=== PATIENT | female | born 1975 | race Caucasian/White ===

== ENCOUNTER → 2016-04-04 | Outpatient (CLI) | payer OTHER ==
[~2016-04-04] MED LIST: CIPR-225 PO; DOCU100C37 PO; HYDR-3816 PO; IBUP-1773 PO; SIME80TA16 PO
[2016-04-04 10:33] LABS: BASOPHILS # (AUTO) 0.1 10^3/uL (0.0-0.1); BASOPHILS % (AUTO) 1 % (0-10); EOSINOPHILS # (AUTO) 0.4 10^3/uL (0.0-0.3); EOSINOPHILS % (AUTO) 4 % (0-10); LYMPHOCYTES # (AUTO) 2.3 X 10^3 (1.0-4.0); LYMPHOCYTES % (AUTO) 24 % (12-44); MEAN CORPUSCULAR HEMOGLOBIN 21 PG (25-34); MEAN CORPUSCULAR HGB CONC 28 G/DL (32-36); MEAN CORPUSCULAR VOLUME 74 FL (80-99); MEAN PLATELET VOLUME 10.4 FL (7.4-10.4); MONOCYTES # (AUTO) 0.8 X 10^3 (0.0-1.0); MONOCYTES % (AUTO) 8 % (0-12); NEUTROPHILS # (AUTO) 6.1 X 10^3 (1.8-7.8); NEUTROPHILS % (AUTO) 64 % (42-75); PLATELET COUNT 395 10^3/uL (130-400); RED BLOOD COUNT 4.28 10^6/uL (4.35-5.85); RED CELL DISTRIBUTION WIDTH 18.9 % (10.0-14.5); RETICULOCYTE % 1.22 % (0.50-2.40); WHITE BLOOD COUNT 9.6 10^3/uL (4.3-11.0)
--- NOTE | 2016-04-04 14:14 | Diagnostic Imaging Report ---
INDICATION: Menorrhagia. Endovaginal pelvic sonogram. FINDINGS: Uterus measures 10.9 x 7.1 x 6.1 cm. The myometrium appears normal. The endometrium is thickened measuring 13 mm. There are bilateral ovarian cysts. There is a small hemorrhagic cyst on the left ovary. There is no free fluid. IMPRESSION: Thickened endometrium that could be related to menstrual phase but endometrial hyperplasia cannot be excluded. Dictated by: Dictated on workstation # [id number]
[2016-04-04 14:40] LABS: %SAT TOTAL IRON BINDING CAPIC 4 % (15-50); TIBC 450 ug/dL (280-380)
[2016-04-04 15:28] LABS: UIBC 432 ug/dL (55-450)
== END ==
LOC: RAD 10:06
PROVIDERS: ATTEND Nurse Practitioner
DX: N92.0 Excessive and frequent menstruation with regular cycle (principal); D50.0 Iron deficiency anemia secondary to blood loss (chronic)
CPT/HCPCS: 36415; 76830; 76856; 83540; 83550; 85025; 85045

== ENCOUNTER 2016-04-22 08:26 | Outpatient (RCR) | payer OTHER ==
[2016-04-04 11:43] LABS: ALANINE AMINOTRANSFERASE 11 U/L (0-55); ALBUMIN 4.4 G/DL (3.2-4.5); ANION GAP 9 MMOL/L (5-14); ASPARTATE AMINO TRANSFERASE 19 U/L (5-34); BILIRUBIN,TOTAL 0.6 MG/DL (0.1-1.0); BLOOD UREA NITROGEN 10 MG/DL (7-18); BUN/CREATININE RATIO 14; CALCIUM 9.2 MG/DL (8.5-10.1); CARBON DIOXIDE 24 MMOL/L (21-32); CHLORIDE 107 MMOL/L (98-107); CREATININE SERUM 0.72 MG/DL (0.60-1.30); GFR ESTIMATED > 60; GLUCOSE 73 MG/DL (70-105); POTASSIUM 4.4 MMOL/L (3.6-5.0); SODIUM 140 MMOL/L (135-145)
[~2016-04-22 08:26] MED LIST changes: -CIPR-225 PO; -DOCU100C37 PO; +FERRIC CARBOXYMALTOSE (CANCER) 750 MG in NS (IVPB) CANCER CENTER 250 ML IV SCH; -HYDR-3816 PO; -IBUP-1773 PO; -SIME80TA16 PO
[2016-05-30] MEDS ORDERED: CIPR-225 PO (06:53)
[2016-05-30] MEDS ORDERED: IBUP-1773 PO (09:16)
[2016-05-30] MEDS ORDERED: HYDR-3816 PO (09:16)
[2016-05-30] MEDS ORDERED: SIME80TA16 PO (09:16)
[2016-05-30] MEDS ORDERED: DOCU100C37 PO (09:16)
== END 2016-07-03 | disposition home or self-care (01) ==
LOC: ONC 08:26
PROVIDERS: ATTEND Internal Medicine Hematology & Oncology
DX: D50.0 Iron deficiency anemia secondary to blood loss (chronic) (principal); N92.0 Excessive and frequent menstruation with regular cycle; F17.210 Nicotine dependence, cigarettes, uncomplicated
CPT/HCPCS: 80053; 82728; 96365; 99214

== ENCOUNTER 2016-05-23 08:45 | Outpatient (CLI) | payer OTHER ==
[~2016-05-23] VITALS: Ht 172.7 cm; Wt 65.8 kg
--- OUTSIDE RECORDS SUMMARY | 2016-05-23 08:49 | XMS REPORT | Continuity of Care Document ---
Author Author [facility] Organization [facility] Address Unknown Phone Unavailable Allergies Active Description Code Type Severity Reaction Onset Reported/Identified Relationship to Patient Clinical Status Yes No Known Drug Allergies [id number] Drug Allergy Unknown N/ A 04/15/2016 Medications Problems Date Dx Coded Attending Type Code Diagnosis Diagnosed By 07/20/2015 CHANDRIKA PETERS SENIOR POWER PLANT OPERATOR Ot R00.2 PALPITATIONS 07/21/2015 CHANDRIKA PETERS SENIOR POWER PLANT OPERATOR Ot R00.2 PALPITATIONS 08/15/2015 CHANDRIKA PETERS SENIOR POWER PLANT OPERATOR Ot R00.2 PALPITATIONS 12/07/2015 KATI MERA SNAKER DRIVING HORSES Ot R13.10 DYSPHAGIA, UNSPECIFIED 12/07/2015 SAMARIA KATI L SNAKER DRIVING HORSES Ot S06.0X9A CONCUSSION W LOSS OF CONSCIOUSNESS OF UN 12/07/2015 MERAERWINI L SNAKER DRIVING HORSES Ot X58.XXXA EXPOSURE TO OTHER SPECIFIED FACTORS, INI 12/07/2015 SAMARIA KATI L SNAK[employer] DRIVING HORSES Ot Y99.8 OTHER EXTERNAL CAUSE STATUS 12/12/2015 SAMARIA KATI L SNAKER DRIVING HORSES Ot R13.10 DYSPHAGIA, UNSPECIFIED 12/12/2015 MERAERWINI L SNAKER DRIVING HORSES Ot S06.0X9A CONCUSSION W LOSS OF CONSCIOUSNESS OF UN 12/12/2015 SAMARIA KATI L SNAKER DRIVING HORSES Ot X58.XXXA EXPOSURE TO OTHER SPECIFIED FACTORS, INI 12/12/2015 SAMARIA KATI L SNAK[employer] DRIVING HORSES Ot Y99.8 OTHER EXTERNAL CAUSE STATUS 12/21/2015 SAMARIA KATI L SNAKER DRIVING HORSES Ot R13.10 DYSPHAGIA, UNSPECIFIED 12/21/2015 MERA, KATI L SNAKER DRIVING HORSES Ot S06.0X9A CONCUSSION W LOSS OF CONSCIOUSNESS OF UN 12/21/2015 SAMARIA KATI L SNAKER DRIVING HORSES Ot X58.XXXA EXPOSURE TO OTHER SPECIFIED FACTORS, INI 12/21/2015 KATI MERA SNAK[employer]IV[employer] HORSES Ot Y99.8 OTHER EXTERNAL CAUSE STATUS 04/04/2016 CHANDRIKA PETERS SENIOR POWER PLANT OPERATOR Ot R00.2 PALPITATIONS 04/04/2016 KATI MERA Shweta SNA[employer] HORSES Ot R13.10 DYSPHAGIA, UNSPECIFIED 04/04/2016 KATI MERA Shweta SNAK[employer] DRIVING HORSES Ot S06.0X9A CONCUSSION W LOSS OF CONSCIOUSNESS OF UN 04/04/2016 KATI MERA Shweta SNAK[employer] DRIVING HORSES Ot X58.XXXA EXPOSURE TO OTHER SPECIFIED FACTORS, INI 04/04/2016 KATI MERA Shweta SNA[employer]ES Ot Y99.8 OTHER EXTERNAL CAUSE STATUS 04/04/2016 PETERS, CHANDRIKA Mio SENIOR POWER PLANT OPERATOR Ot D50.0 IRON DEFICIENCY ANEMIA SECONDARY TO BLOO 04/04/2016 PETERS, CHANDRIKA J SENIOR POWER PLANT OPERATOR Ot N92.0 EXCESSIVE AND FREQUENT MENSTRUATION WITH 04/10/2016 PETERSCHANDRIKA SENIOR POWER PLANT OPERATOR Ot D50.0 IRON DEFICIENCY ANEMIA SECONDARY TO BLOO 04/10/2016 PETERS, CHANDRIKA Lieberman SENIOR POWER PLANT OPERATOR Ot N92.0 EXCESSIVE AND FREQUENT MENSTRUATION WITH 05/10/2016 PETERS CAHNDRIKA SMARTP Ot D50.0 IRON DEFICIENCY ANEMIA SECONDARY TO BLOO 05/10/2016 PETERS, CHANDRIKA J SENIOR POWER PLANT OPERATOR Ot N92.0 EXCESSIVE AND FREQUENT MENSTRUATION WITH Procedures Results Encounters ACCT No. Visit Date/Time Discharge Status Pt. Type Provider Facility Loc./Unit Complaint [id number] 04/22/2016 08:26:00 ACT Outpatient MARCELLE LUJAN [facility] ONC [id number] 04/04/2016 10:06:00 ACT Outpatient CHANDRIKA PETERS [facility] RAD HEAVY AND PAINFUL PERIODS,ANEMIA [id number] 12/05/2015 11:29:00 ACT Outpatient [place]ARIA [place] APRN [facility] RAD CONCUSSION DUE TO TRAUMA,DIFFICULTY SWALLING [id number] 07/19/2015 07:29:00 ACT Outpatient CHANDRIKA PETERS [facility] CARD PALPITATIONS
[2016-05-23 08:52] VITALS: BP 126/76
[2016-05-23 09:18] LABS: BASOPHILS % (AUTO) 1 % (0-10); EOSINOPHILS # (AUTO) 0.4 10^3/uL (0.0-0.3); EOSINOPHILS % (AUTO) 5 % (0-10); LYMPHOCYTES # (AUTO) 1.8 X 10^3 (1.0-4.0); LYMPHOCYTES % (AUTO) 25 % (12-44); MEAN CORPUSCULAR HEMOGLOBIN 28 PG (25-34); MEAN CORPUSCULAR HGB CONC 31 G/DL (32-36); MEAN CORPUSCULAR VOLUME 89 FL (80-99); MEAN PLATELET VOLUME 10.1 FL (7.4-10.4); MONOCYTES # (AUTO) 0.4 X 10^3 (0.0-1.0); MONOCYTES % (AUTO) 6 % (0-12); NEUTROPHILS # (AUTO) 4.6 X 10^3 (1.8-7.8); NEUTROPHILS % (AUTO) 63 % (42-75); PLATELET COUNT 296 10^3/uL (130-400); RED BLOOD COUNT 4.85 10^6/uL (4.35-5.85); WHITE BLOOD COUNT 7.3 10^3/uL (4.3-11.0)
== END 2016-05-23 09:10 | disposition home or self-care (01) ==
LOC: PREOP 08:45
PROVIDERS: ATTEND Obstetrics & Gynecology
DX: Z01.812 Encounter for preprocedural laboratory examination (principal); Z11.2 Encounter for screening for other bacterial diseases; N93.9 Abnormal uterine and vaginal bleeding, unspecified; D64.9 Anemia, unspecified
CPT/HCPCS: 36415; 85025; 86850; 86900; 86901; 87081

== ENCOUNTER 2016-05-30 06:11 | Day surgery (SDC) | payer OTHER ==
[~2016-05-30] VITALS: Ht 172.7 cm; Wt 65.8 kg
[2016-05-30] VITALS (10 sets, daily range): BP systolic 91–114; BP diastolic 44–68
--- OUTSIDE RECORDS SUMMARY | 2016-05-30 06:14 | XMS REPORT | Continuity of Care Document ---
Author Author [facility] Organization [facility] Address Unknown Phone Unavailable Care Team Providers Care Excel Specialist Name Role Phone MELISA YBARRA MD PCP Insurance Providers Payer Name Policy Number Subscriber Name Relationship [id number] Nabila Higginbotham 19 Self / Same As Patient Advance Directives Directive Response Recorded Date/Time Advance Directives No 05/23/16 8:53am Resuscitation Status Full Code 05/23/16 8:53am Problems No problem information available. Medications No known medications. Social History Social History Problem Response Recorded Date/Time Alcohol Use Occasionally Uses 05/23/2016 8:53am Recreational Drug Use No 05/23/2016 8:53am Recent Foreign Travel No 05/23/2016 8:55am Recent Infectious Disease Exposure No 05/23/2016 8:55am Smoking Status Current Everyday Smoker 05/23/2016 8:53am Type Used Cigarettes 05/23/2016 8:53am Recent Hopitalizations No 05/23/2016 8:53am Query Response Start Date Stop Date Smoking Status Current Everyday Smoker Hospital Discharge Instructions No hospital discharge instructions. Plan of Care Discharge Date 05/23/16 9:10am Prescriptions See Medication Section Functional Status No functional status results. Allergies, Adverse Reactions, Alerts No known allergies. Immunizations No immunization records. Vital Signs Acute Vital Signs Vital Response Date/Time Pulse Rate (adult) 65 bpm (60 - 90) 05/23/2016 8:52am O2 Sat by Pulse Oximetry 99 % (88 - 100) 05/23/2016 8:52am Blood Pressure 126/76 mm Hg 05/23/2016 8:52am Blood Pressure Mean 93 mm Hg 05/23/2016 8:52am Pain Numeric Pain Scale 0-No Pain 05/23/2016 8:52am Height (Feet) 5 feet 05/23/2016 8:52am Height (Inches) 8.00 inches 05/23/2016 8:52am Height (Calculated Centimeters) 172.053959 cm 05/23/2016 8:52am Weight (Pounds) 145 pounds 05/23/2016 8:52am Weight (Ounces) 0.0 oz 05/23/2016 8:52am Weight (Calculated Grams) 76126.89 gm 05/23/2016 8:52am Weight (Calculated Kilograms) 65.386964 kilograms 05/23/2016 8:52am Calculated BMI 22.1 05/23/2016 8:52am Results No known relevant diagnostic tests, laboratory data and/or discharge summary. Procedures No known history of procedures. Encounters Encounter Location Arrival/Admit Date Discharge/Depart Date Attending Provider Departed Clinic [facility] 05/23/16 8:45am 05/23/16 9: 10am ROCCO BUCKLEY DO
--- OUTSIDE RECORDS SUMMARY | 2016-05-30 06:14 | XMS REPORT | Continuity of Care Document ---
Author Author [facility] Organization [facility] Address Unknown Phone Unavailable Care Team Providers Care Boiler Out Name Role Phone MELISA YBARRA MD PCP Insurance Providers Payer Name Policy Number Subscriber Name Relationship [id number] Nabila Higginbotham 19 Self / Same As [...] 8.00 inches 05/23/2016 8:52am Height (Calculated Centimeters) 172.550470 cm 05/23/2016 8:52am Weight (Pounds) 145 pounds 05/23/2016 8:52am Weight (Ounces) 0.0 oz 05/23/2016 8:52am Weight (Calculated Grams) 71430.89 gm 05/23/2016 8:52am Weight (Calculated Kilograms) 65.492907 kilograms 05/23/2016 8:52am Calculated BMI 22.1 05/23/2016 8:52am Results No known relevant diagnostic tests, laboratory data and/or discharge summary. Procedures No known history of procedures. Encounters Encounter Location Arrival/Admit Date Discharge/Depart Date Attending Provider Departed Clinic [facility] 05/23/16 8:45am 05/23/16 9: 10am ROCCO BUCKLEY DO
[2016-05-30] MEDS: LACTATED RINGERS 1,000 ML IV PRN ×2 (06:30→08:30)
[2016-05-30] MEDS ORDERED: ceFAZolin 1,000 MG (ANCEF) VIAL ONE (06:44)
[2016-05-30] MEDS ORDERED: NS (IVPB) 50 ML ONE (06:44)
[2016-05-30] MEDS ORDERED: metroNIDAZOLE 500MG/100ML IVPB 100 ML ONE (06:45)
[2016-05-30] MEDS ORDERED: CIPR-225 PO (06:53)
[2016-05-30] MEDS ORDERED: ROCURONIUM 50 MG/5 ML (ZEMURON) VIAL IV ONE (06:54)
[2016-05-30] MEDS ORDERED: LIDOCAINE PF 2% 10 ML (XYLOCAINE) AMP ONE (06:54)
[2016-05-30] MEDS ORDERED: proPOfol 200 MG/20 ML (DIPRIVAN) VIAL IV ONE (06:54)
[2016-05-30] MEDS ORDERED: ONDANSETRON 4 MG/2 ML (SDV) Z0FRAN ONE (06:54)
[2016-05-30] MEDS ORDERED: fentaNYL INJECTION 100 MCG/2 ML AMP ONE (06:55)
[2016-05-30] MEDS ORDERED: MIDAZOLAM 2 MG/2 ML (VERSED) VIAL ONE (06:55)
[2016-05-30] MEDS ORDERED: SEVOFLURANE (ULTANE) 15 ML INHAL SOLN ONE ×7 (06:57→09:09)
[2016-05-30] MEDS ORDERED: metroNIDAZOLE 500 MG/100 ML IVPB (PRE-MIX) IV ONE (07:00)
[2016-05-30] MEDS ORDERED: ceFAZolin 1 GM/NS 50 ML IVPB IV ONE ×2 (07:00)
[2016-05-30] MEDS ORDERED: BUPIVACAINE 0.25% 30 ML (SENSORCAINE) VIAL ONE (07:04)
--- NOTE | 2016-05-30 07:15 | Progress Note-Pre Operative ---
Pre-Operative Progress Note H&P Reviewed The H&P was reviewed, patient examined and no changes noted. Date H&P Reviewed: May 30, 2016 Time H&P Reviewed: 07:14 Pre-Operative Diagnosis: AUB, Chronic blood loss anemia ROCCO BUCKLEY DO May 30, 2016 7:15 am
[2016-05-30] MEDS ORDERED: NEOSTIGMINE (BLOXIVERZ ) 1 MG/1ML 10 ML VIAL ONE (08:49)
[2016-05-30] MEDS ORDERED: GLYCOPYRROLATE 0.2 MG/ML (ROBINUL) 2 ML VIAL ONE (08:49)
[2016-05-30] MEDS ORDERED: LACTATED RINGERS 1,000 ML IV ONE (08:49)
[2016-05-30] MEDS ORDERED: LACTATED RINGERS 1,000 ML IV SCH (09:09)
[2016-05-30] MEDS ORDERED: morphine INJ 10 MG/ML 1ML (SYR OR VIAL) ONE (09:10)
[2016-05-30] MEDS ORDERED: SIMETHICONE 80 MG (MYLICON) CHEW PO PRN (09:15)
[2016-05-30] MEDS ORDERED: KETOROLAC 30 MG/ML VIAL IV PRN (09:15)
[2016-05-30] MEDS ORDERED: ZOLPIDEM 5 MG (AMBIEN) TAB PO PRN (09:15)
[2016-05-30] MEDS ORDERED: DOCUSATE SODIUM 100 MG (COLACE) CAP PO PRN (09:15)
[2016-05-30] MEDS ORDERED: HYDROcodone/APAP 7.5 MG/325 MG (LORTAB, LORCET PLUS) TABLET PO PRN (09:15)
[2016-05-30] MEDS ORDERED: ANTACID SUSP 30 ML UDC (MYLANTA) PO PRN (09:15)
[2016-05-30] MEDS ORDERED: CHLORASEPTIC LOZENGE MM PRN (09:15)
[2016-05-30] MEDS ORDERED: ONDANSETRON 4 MG/2 ML (SDV) Z0FRAN IV PRN (09:15)
[2016-05-30] MEDS ORDERED: IBUP-1773 PO (09:16)
[2016-05-30] MEDS ORDERED: HYDR-3816 PO (09:16)
[2016-05-30] MEDS ORDERED: SIME80TA16 PO (09:16)
[2016-05-30] MEDS ORDERED: DOCU100C37 PO (09:16)
--- NOTE | 2016-05-30 09:17 | Discharge Inst-Women's Service ---
Discharge Inst-Women's Serv Depart Medication/Instructions New, Converted or Re-Newed RX: RX on Chart Consults/Follow Up Additional Follow Up: Yes Orders/Referrals Dr. Gottlieb 7-10 days and in 8 weeks Activity Activity: Activity as Tolerated Driving Instructions: No Driving for 1 Week NO SMOKING: NO SMOKING Nothing Inside Vagina: No Douching, No [place], No Tampons Diet Discharge Diet: No Restrictions Symptoms to Report to : Bleeding Excessive, Pain Increased, Fever Over 101 Degrees F, Vaginal Bleeding Increase, Questions/Concerns For Any Problems or Questions: Contact Your Physician Skin/Wound Care Infection Signs and Symptoms: Increased Redness, Foul Odor of Wound, Increased Drainage, Skin Itchy or Has a Rash, Increased Swelling, Temperature Above 101 F Operative Area Clean and Dry: Keep Incision Clean/Dry Stitches/[place]/Dermabond: Dermabond, Care of Stitches Bathing Instructions: ROCCO Vines DO May 30, 2016 09:17
[2016-05-30] MEDS: morphine INJ 10 MG/ML 1ML (SYR OR VIAL) IVP PRN ×2 (09:19→09:29)
[2016-05-30] MEDS ORDERED: MEPERIDINE (DEMEROL) INJ 50 MG/ML IVP PRN (09:30)
[2016-05-30] MEDS ORDERED: ONDANSETRON 4 MG/2 ML (SDV) Z0FRAN IVP PRN (09:30)
[2016-05-30] MEDS ORDERED: HYDROmorphone (DILAUDID) 2 MG/ML VIAL IVP PRN ×2 (09:30→11:00)
[2016-05-30] MEDS ORDERED: PROMETHAZINE INJ 25 MG/ML (PHENERGAN) AMP IVP PRN (09:30)
[2016-05-30] MEDS ORDERED: HYDROmorphone (DILAUDID) 2 MG/ML VIAL ONE (09:32)
[2016-05-30] MEDS ORDERED: IBUPROFEN 600 MG (MOTRIN) TAB PO ONE (15:48)
[2016-05-31] MEDS ORDERED: IBUPROFEN 600 MG (MOTRIN) TAB PO PRN (02:00)
--- NOTE | 2016-05-31 12:57 | OPERATIVE REPORT ---
PROCEDURE PHYSICIAN: EDUIN GOTTLIEB DATE OF PROCEDURE: 05/30/2016 Nabila pressure 2 previous section. PREOPERATIVE DIAGNOSES: 1. 40-year-old female with abnormal uterine bleeding. 2. Chronic blood loss anemia from heavy menses. POSTOPERATIVE DIAGNOSES: 3. 40-year-old female with abnormal uterine bleeding. 4. Chronic blood loss anemia from heavy menses. PROCEDURE: Robotic assisted total laparoscopic hysterectomy with uterine weight greater than 250 grams. SURGEON: Dr. Eduin Gottlieb. GUEST LAUNDRY ATTENDANT: Indira Rodríguez APRN. ANESTHESIA: General endotracheal. ESTIMATED BLOOD LOSS: 30 mL URINE OUTPUT: 20 mL, clear at the end of the procedure. FLUIDS: 1200 mL of lactated ringer solution. FINDINGS: Hyperemic and slightly enlarged appearing uterus with suspicion of intramural fibroids based on palpation. Grossly normal appearing bilateral fallopian tubes, and ovaries. SPECIMEN SENT: Uterus and cervix. INDICATIONS FOR THE PROCEDURE: This 40-year-old female was a consultation in my office from Dr. Pineda [facility]. He had been seeing the patient for chronic blood loss anemia. The patient described undergoing multiple treatments including hormonal suppression of menses, endometrial ablation, D and Cs on several different occasions, all without any relief in her heavy bleeding pattern which started since the of her youngest child. She had setup proceeding with hysterectomy with her previous doctor back on the [facility]; however, she had been move due to the and relocate and was unable to followthrough with that procedure so once here she began having issues again and that is how she came in to my care. I discussed with the patient the risk of hysterectomy as she was ready and willing to proceed with this more definitive therapy. I discussed with her risk of bleeding, infection, and damaging any surrounding structures, including, but not limited to the bowel, bladder, ureter, kidneys, and blood vessels. I discussed with the patient the risk of need for blood transfusion, risk of anesthesia, risk of postoperative complications including hematoma, formation, bowel injury, bowel resection, colostomy, nephrostomy tube, and even . After all of her questions were answered. Consent was obtained in the preoperative area. The patient was taken the operating room. OPERATIVE REPORT IN DETAIL: Once in the operating room, general anesthesia was found to be adequate. She was placed in dorsal lithotomy position, prepped and draped in normal sterile fashion. A timeout is performed. I then perform a bimanual examination prior to starting the procedure; see my findings above. Perez catheter was placed using sterile technique. I placed a weighted speculum into the patient's vagina. A right angle retractor is used to visualize the cervix. It was grasped at the 12 o'clock position using a single tooth tenaculum. I then placed a 0 Vicryl suture through the anterior lip of the cervix and remove my single tooth tenaculum. I use the suture as my traction point on the cervix and gently sound the uterine cavity, depth was found to be approximately 9 cm. I then select an 8 cm JULI uterine manipulator tip and a 3.5 cm colpotomy ring and advance the JULI uterine manipulator tip into the uterus, deploying the balloon and advancing the colpotomy ring around the vaginal fornix. Once the JULI is in place and excellent manipulation of the uterus is noted on bimanual examination, I then remove all the other instruments from the patient's vagina leaving the Perez catheter and the JULI in place and then take my attention to the abdomen after a change of gloves is performed. Once in the abdomen, I infiltrate the infraumbilical area using 0.25% Marcaine. I make an 8 mm incision and direct a Veress needle through this incision until intraperitoneal placement is confirmed using the saline drop test. I then proceed with insufflation using CO2 gas. An opening pressure 3 mmHg is noted. I proceed to maximum pressure of 15 mmHg at which point I remove the Veress needle, introduced a blunt 8 mm da Criss camera trocar. Once this is in place, I confirm intraperitoneal placement using da Criss laparoscope. I had the patient placed in steep Trendelenburg after I confirm there is no evidence of damage upon my entry point. Once the patient is in steep Trendelenburg and I am able visualize all the components of the anatomy in the pelvic anatomy as needed to perform the procedure and as described in my findings above. I then placed 2 lateral trocars; these are both 8 mm trocars. The skin is infiltrated using 0.25% Marcaine. An 8 mm incision is made with a knife and the trocars are directed under direct visualization of the laparoscope through the abdominal wall until they are visualized on laparoscopy. Once these are in place, I am able to bring in the da Criss robot and dock it in the appropriate fashion. I place the da Criss vessel sealer in the left hand and monopolar mere in the right hand. I perform the following dissection bilaterally. Starting at the utero-ovarian ligament, I bipolar cauterize this and transect it using the vessel sealer. I then to grasp the point of the tube that had been ligated from previous tubal ligation, bipolar cauterize this and transect it using the vessel sealer. I then grasp the round ligament, bipolar cauterizing this and transecting it using the vessel sealer. I then am able to grasp the entire broad ligament, bipolar cauterize it and transect it using the vessel sealer down to the level of the lower uterine segment at which point I separate the anterior posterior leaflets of the broad ligament anteriorly. The anterior leaflet is taken around to the anterior vaginal fornix. The posterior leaflet is taken around to the posterior vaginal fornix. This allows me to skeletonize the uterine vessels and bipolar cauterize them using the vessel sealer. I then perform a colpotomy at the 12 o'clock position using a monopolar shear and take this colpotomy circumferentially around the vaginal fornix, amputating the cervix and uterus away from the vagina. Once it is completely , the uterus and cervix is then removed through the vagina and the remaining opening vaginal cuff is then closed using 2-0 Vicryl suture in the lateral vaginal apices in a [id number] fashion, colposuspending them to the uterosacral ligaments. I then close the remainder of the vaginal cuff using 2-0 V-LOC in a running fashion. There is no active bleeding noted from any my dissection planes. I then undock the da Criss robot and proceed with the remainder of the case laparoscopically. I copiously irrigate the pelvis using normal saline. Once again, no active bleeding is noted from any my dissection planes. I then place FloSeal hemostatic agent over my planes of dissection. Once again, no active bleeding is noted from any my dissection planes. I then have the patient taken out of steep Trendelenburg and remove the lateral trocars under visualization of the laparoscope. The infraumbilical trocar is left in place to release the insufflation from the abdomen and to introduce 10 mL of 0.25% Marcaine to the peritoneal cavity for postoperative pain management, I then remove that trocar as well. I then close the skin incisions using 4-0 Monocryl in interrupted subcuticular stitches. Dermabond applied is applied to the incision surveillance and Band-Aids are placed over these. The patient tolerated the procedure well and was taken to the recovery area in stable condition. Lap and sponge counts correct at the end of the procedure. Instrument count is correct as well. One gram of Ancef and 500 mg of Flagyl were given preoperatively for infection prophylaxis. Job ID: [id number] Dictated Date: 05/30/2016 10:28:50 Route Agent Date: 05/31/2016 12:38:50 / bety
--- NOTE | 2016-05-31 13:16 | Anesthesia-General Post-Op ---
General Patient Condition Mental Status/LOC: Same as Preop Cardiovascular: Satisfactory Nausea/Vomiting: Absent Respiratory: Satisfactory Pain: Controlled Complications: Absent Post Op Complications Complications Patient was discharged to home prior to us making postop rounds. RN reported no complaints and patient was doing well. Follow Up Care/Instructions Patient Instructions None needed. Anesthesia/Patient Condition Patient Condition Patient is doing well, no complaints, stable vital signs, no apparent adverse anesthesia problems. No complications reported per nursing. PATRICIA RAI CRNA May 31, 2016 13:16
== END 2016-05-30 17:40 | disposition home or self-care (01) ==
LOC: SDC 06:11 → WS 10:02 → SDC 17:40
PROVIDERS: ATTEND Obstetrics & Gynecology
DX: N92.0 Excessive and frequent menstruation with regular cycle (principal); D50.0 Iron deficiency anemia secondary to blood loss (chronic)
CPT/HCPCS: 84703; 88307; 94664; 96361; 96375

== ENCOUNTER 2016-07-25 09:13 | Outpatient (RCR) | payer OTHER ==
[2016-07-18 08:52] LABS: BASOPHILS # (AUTO) 0.1 10^3/uL (0.0-0.1); BASOPHILS % (AUTO) 1 % (0-10); EOSINOPHILS # (AUTO) 0.4 10^3/uL (0.0-0.3); EOSINOPHILS % (AUTO) 6 % (0-10); LYMPHOCYTES % (AUTO) 29 % (12-44); MEAN CORPUSCULAR HEMOGLOBIN 30 PG (25-34); MEAN CORPUSCULAR HGB CONC 32 G/DL (32-36); MEAN CORPUSCULAR VOLUME 94 FL (80-99); MEAN PLATELET VOLUME 10.9 FL (7.4-10.4); MONOCYTES # (AUTO) 0.5 X 10^3 (0.0-1.0); MONOCYTES % (AUTO) 7 % (0-12); NEUTROPHILS # (AUTO) 3.9 X 10^3 (1.8-7.8); NEUTROPHILS % (AUTO) 57 % (42-75); PLATELET COUNT 321 10^3/uL (130-400); RED BLOOD COUNT 4.99 10^6/uL (4.35-5.85); WHITE BLOOD COUNT 6.9 10^3/uL (4.3-11.0)
[2016-07-18 09:42] LABS: ALANINE AMINOTRANSFERASE 8 U/L (0-55); ALBUMIN 4.5 G/DL (3.2-4.5); ANION GAP 10 MMOL/L (5-14); ASPARTATE AMINO TRANSFERASE 14 U/L (5-34); BILIRUBIN,TOTAL 1.1 MG/DL (0.1-1.0); BLOOD UREA NITROGEN 15 MG/DL (7-18); BUN/CREATININE RATIO 19; CALCIUM 9.2 MG/DL (8.5-10.1); CARBON DIOXIDE 28 MMOL/L (21-32); CHLORIDE 104 MMOL/L (98-107); CREATININE SERUM 0.81 MG/DL (0.60-1.30); GFR ESTIMATED > 60; GLUCOSE 95 MG/DL (70-105); POTASSIUM 3.9 MMOL/L (3.6-5.0); SODIUM 142 MMOL/L (135-145); TOTAL PROTEIN 7.6 G/DL (6.4-8.2)
[~2016-07-25 09:13] MED LIST changes: +CIPR-225 PO; +DOCU100C37 PO; -FERRIC CARBOXYMALTOSE (CANCER) 750 MG in NS (IVPB) CANCER CENTER 250 ML IV SCH; +HYDR-3816 PO; +IBUP-1773 PO; +SIME80TA16 PO
== END 2016-10-16 | disposition home or self-care (01) ==
LOC: ONC 09:13
PROVIDERS: ATTEND Internal Medicine Hematology & Oncology
DX: D50.0 Iron deficiency anemia secondary to blood loss (chronic) (principal); N92.0 Excessive and frequent menstruation with regular cycle; F17.210 Nicotine dependence, cigarettes, uncomplicated
CPT/HCPCS: 36415; 80053; 82728; 85025; 99213